=== PATIENT | male | born 2005 | race American Indian/Alaskan Native ===

== ENCOUNTER 2024-07-31 19:03 | Emergency (ER) | payer OTHER ==
[~2024-07-31] VITALS: Ht 157.5 cm; Wt 105.0 kg
[~2024-07-31 19:03] MED LIST: ACETAMINOPHEN-1 EAC1 PO; TYLENOL WITH C1 EACH PO
[2024-07-31 20:07] VITALS: BP 138/86
== END 2024-07-31 20:07 | disposition home or self-care (01) ==
LOC: ED 19:03
DX: T52.0X1A Toxic effect of petroleum products, accidental (unintentional), initial encounter (principal); R11.10 Vomiting, unspecified; F10.929 Alcohol use, unspecified with intoxication, unspecified
CPT/HCPCS: 99283